=== PATIENT | female | born 1980 | race Caucasian/White ===

== ENCOUNTER 2016-07-18 19:47 | Emergency (ER) | payer OTHER ==
--- NOTE | ~2016-07-18 | CR20 ---
[facility]. [facility] A Service of [facility] & [facility] RADIOLOGY TEXT RESULTS PATIENT: DANIEL ALVAREZ LOCATION: SED : 76 UNIT #: [id number] AGE: [address]: TYREE CELESTE SEX: F ORDER DR: [id number] [address] [address] [id number] E MR#: [id number] Acc #: [id number] NAME: DANIEL ALVAREZ : 1980 SEX: F STUDY DATE/TIME: 07/18/2016 20:36 UNIT: SED ROOM: STUDY DESCRIPTION: CR Ankle Min 3 Views Lt Attending Physician: Tyree Celeste Ordering Physician: Tyree Celeste Primary Care Physician: Shilpa Watts M.D. MEDICAL IMAGING REPORT This report is preliminary unless electronic signature is present. EXAM Left ankle, 3 views HISTORY Ankle pain and bruising for 2 weeks after injury. FINDINGS AP, lateral, and oblique projections of the ankle show satisfactory integrity of the joint mortise with a smooth articular surface. There is no identifiable fracture, dislocation, or radiopaque foreign body. IMPRESSION Normal ankle. Dictated by... Joseluis Perez M.D. THIS IS AN ELECTRONICALLY VERIFIED REPORT Joseluis Perez M.D. at 07/19/2016 11:44 AM PATRICK/ariela TD: 07/18/2016 23:55 JOB #: [id number] MEDICAL IMAGING REPORT Page 1 of 1
[~2016-07-18 19:47] MED LIST: AMOXIL500 M1 PO; CHANTIX0.5 MG; PEPCID AC20 M2 PO; PRILOSEC PO; VITAMIN D 22000 UNIT PO; VOLTAREN75 MG PO; ZANAFLEX PO
[2016-07-18] MEDS ORDERED: IBUPROFEN800 MG PO (21:40)
== END 2016-07-18 21:43 | disposition home or self-care (01) ==
LOC: SED 19:47
DX: S90.02XA Contusion of left ankle, initial encounter (principal); F17.210 Nicotine dependence, cigarettes, uncomplicated; K21.9 Gastro-esophageal reflux disease without esophagitis; Z98.51 Tubal ligation status; W22.8XXA Striking against or struck by other objects, initial encounter; Y92.009 Unspecified place in unspecified non-institutional (private) residence as the place of occurrence of the external cause
CPT/HCPCS: 29405; 73610; 99283

== ENCOUNTER → 2016-09-15 | Outpatient (CLI) | payer OTHER ==
[~2016-09-15] MED LIST changes: +IBUPROFEN800 MG PO
--- NOTE | ~2016-09-15 | US98 ---
[facility] A Service of [facility] & [facility] RADIOLOGY TEXT RESULTS PATIENT: DANIEL ALVAREZ LOCATION: SG : 76 UNIT #: [id number] AGE: [address]: Shilpa Watts MD SEX: F ORDER DR: [id number] [address] [address] [id number] O MR#: [id number] Acc #: [id number] NAME: DANIEL ALVAREZ : 1980 SEX: F STUDY DATE/TIME: 09/15/2016 14:29 UNIT: [facility] ROOM: STUDY DESCRIPTION: US Pelvic Non-OB Complete Attending Physician: Shilpa Watts M.D. Referring Physician: Shilpa Watts M.D. Ordering Physician: Shilpa Watts M.D. Primary Care Physician: Shilpa Watts M.D. MEDICAL IMAGING REPORT This report is preliminary unless electronic signature is present. EXAM Pelvic ultrasound, 09/15 INDICATION Pelvic pain for the last 15 years. History of uterine ablation 10 years ago. FINDINGS Transabdominal and transvaginal imaging is performed of the pelvis in multiple planes. Transvaginal imaging performed for better evaluation of endometrium and adnexa. Comparison is made with CT pelvis from 03/18/2014. Uterus measures 8.8 x 4.8 x 5.2 cm. Endometrium measures 12 mm. Myometrium is unremarkable. There is a left ovarian cyst measuring about 2.6 cm in greatest dimension. The left ovary shows perfusion by Doppler. The right ovary cannot be identified on the exam. No adnexal masses. IMPRESSION 2.6 cm left ovarian cyst. Right ovary is not visualized. Pelvic ultrasound is otherwise normal. Dictated by... Jesús Perez Jr., M.D. THIS IS AN ELECTRONICALLY VERIFIED REPORT Jesús Perez Jr., M.D. at 09/16/2016 5:11 PM Sierra TD: 09/16/2016 14:54 JOB #: [id number] MEDICAL IMAGING REPORT [facility] A Service of [facility] & [facility] RADIOLOGY TEXT RESULTS PATIENT: DANIEL ALVAREZ LOCATION: [facility] : [birth year] UNIT #: [id number] AGE: [address]: Shilpa Watts MD SEX: F ORDER DR: Page 1 of 1
== END | disposition home or self-care (01) ==
LOC: SGUS 14:24
DX: R10.2 Pelvic and perineal pain (principal); N83.202 Unspecified ovarian cyst, left side
CPT/HCPCS: 76830; 76856